=== PATIENT | female | born 2000 | race Caucasian/White ===

== ENCOUNTER 2024-01-30 19:12 | Outpatient (REF) | payer MEDICAID, SELFPAY ==
[2024-02-01 13:24] LABS: Hemoglobin S Screen Negative (Negative)
== END 2024-01-30 19:13 | disposition home or self-care (01) ==
LOC: LBN 19:12
PROVIDERS: Visit Provider Nurse Practitioner Family
DX: Z01.89 Encounter for other specified special examinations
CPT/HCPCS: 85660

== ENCOUNTER 2024-02-11 15:56 | Emergency (ER) | payer MEDICAID, SELFPAY ==
[2024-02-11 15:59] VITALS: BP 116/78; PULSE 83; RESP 18; TEMP 36.6; O2SAT 99
[2024-02-11 16:02] VITALS: BP 116/78; PULSE 83; RESP 18; TEMP 36.6; O2SAT 99
[2024-02-11 16:51] LABS: Abs Immature Grans 0.05 10^3/uL (0.0-0.06); Absolute Basophil Count 0.05 10^3/uL (0.0-0.2); Absolute Eosinophil Count 0.17 10^3/uL (0.0-0.7); Absolute Lymphocyte Count 2.29 10^3/uL (1.2-3.4); Absolute Monocyte Count 0.56 10^3/uL (0.1-0.8); Absolute Neutrophil Count 6.35 10^3/uL (1.2-6.7); Basophils % 0.5 %; Eosinophils % 1.8 %; HCT 44.2 % (36.0-46.0); HGB 14.5 g/dL (11.2-15.7); Immature Grans % 0.5 %; Lymphocytes % 24.2 %; MCH 31.2 pg (27.0-33.0); MCHC 32.8 % (32.0-36.0); MCV 95 fL (80-95); MPV 10.7 fL (8.0-11.0); Monocytes % 5.9 %; Neutrophils % 67.1 %; Platelet Count 227 10^3/uL (130-400); RBC 4.65 10^6/uL (3.93-5.22); RDW 12.3 % (11.7-14.6); RDW-SD 42.7 fL; WBC 9.47 10^3/uL (4.4-10.8)
[2024-02-11] MEDS: Lactated Ringers 1,000 ML 1000 ML IV (17:05)
[2024-02-11 17:21] LABS: Magnesium 1.9 mg/dL (1.8-2.4)
[2024-02-11 17:22] LABS: Creatine Kinase 3047 U/L (26-192)
--- NOTE | 2024-02-11 17:55 | DI.RAD_ITS ---
Exam(s) XR HIP PELVIS ADULT BL EXAM: XR HIP PELVIS ADULT BL CLINICAL HISTORY: bilateral hip pain after sprinting. TECHNIQUE: 2D digital imaging was performed of the pelvis and bilateral hips. Three images were obt ained. AP pelvis and lateral views of both hips were obtained. COMPARISON: No exams were available for comparison FINDINGS: BONES: No acute fracture is present. No bony destructive lesion is seen. JOINTS: No dislocation present. SOFT TISSUE: Normal. IMPRESSION: Unremarkable radiographs of bilat hips. Unremarkable radiographs of the pelvis DATA REPOSITORY: RADIATION DOSE DELIVERED:
--- NOTE | 2024-02-11 18:02 | ED.GENADUL_ITS ---
Discharge Plan Disposition Patient Disposition: Home Condition: Good Discharge Details Clinical Impression: Rhabdomyolysis Primary Care Provider: None,None ED Provider: Maulik Whitfield Home Meds and New Rx's Prescriptions: No Action No Known Home Meds Discharge Instructions Instructions: Rhabdomyolysis Additional Instructions: At this time you have evidence of mild rhabdomyolysis. It is important that you avoid any aggressive activity for the next week. Perform daily stretching exercises on your quads and legs 3-4 times daily. Drink a minimum of 10 to 12 cups of water and/or electrolyte solution per day to stay well-hydrated, making sure that you maintain extremely light yellow or clear urine. Please use heating pads to help with any muscle cramps. If you have persistent pain after a week of this conservative therapy you may require further evaluation on a nonemergent basis with orthopedics or physical therapy. If you notice any worsening of your symptoms, or any new symptoms such as vomiting, diarrhea, fever, chills, shortness of breath, chest pain, numbness, weakness, or fainting , please return immediately to the emergency department for reevaluation. Please follow up with your primary care provider as soon as possible for reassessment and reevaluation. As always, it was a pleasure participating in your medical care today. Referrals: Ashok Sánchez [ [facility] STAFF PHYSICIAN] - [facility] General Date/Time Provider Initiated Documentation: 02/11/24 15:57 . 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 Patient states that 3 days ago she was doing warm up exercises for basketball when she felt notable cramping spasm in her anterior thighs bilaterally. Her legs locked up, and she had cramp-like pain. She is eventually able to get up and walk around but had mild to moderate pain while doing this. This pain is continued over the next 72 hours, but is only m ildly improved. It is notably exacerbated whenever she activates her quad musculature. She does admit to some tingling and burning sensation around the hip. She denies any numbness or tingling distally. She denies any bowel or bladder incontinence. She denies any chest pain or shortness of breath. She denies hearing any pop sound during the initial event. She denies any recent antibiotic or fluoroquinolone use. No other complaints at this time. No other modifying factors. Related Data Home Medications ?Medication ?Instructions ?Recorded ?Confirmed Unknown [No Known Home Meds] 01/30/24 02/11/24 Allergies Allergy/AdvReac Type Severity Reaction Status Date / Time No Known Allergies Allergy Verified 02/11/24 16:01 General Stated Complaint: GenMedical RAAD: 3 Review of Systems All systems reviewed & are unremarkable except as noted in HPI and below Exam Narrative Exam Narrative: 1.Const: Well-nourished, Well-developed, appearing stated age 2.Eyes: PERRL, no conjunctival injection, and symmetrical lids. 3.ENT: Atraumatic external nose and ears. Moist MM. Neck: Symmetric, trachea midline, No thyromegaly. 4.CVS: +S1/S2, No murmurs or gallops. Peripheral pulses 2+ and equal in all extremities. Brisk capillary refill in all extremities. 5.RESP: Unlabored respiratory effort. Clear to auscultation bilaterally. No wheezes rales or rhonchi 6.GI: Soft, Nontender/Nondistended, No hepatosplenomegaly. No guarding or rebound. 7.MSK: Normocephalic/Atraumatic, Extremities w/o deformity or ttp on palpation of the anterior lateral medial and posterior aspects of the thigh. No cyanosis or clubbing, no pain with passive movement of the thighs. However with activat ion of the quadricep muscles she has notable pain with extension of the knee, and flexion at the hip. No pain in the calves, knee, or ankle. Good plantar and dorsiflexion of the feet bilaterally. Dorsalis pedis and posterior tibial pulses +2 bilaterally. No edema or swelling. No focal hip tenderness. Pelvis is stable. 8.Skin: Warm, Dry. No rashes or lesions. 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 Sensation grossly intact, no focal neurologic deficits. 10.Psych: (AAO) x3. Appropriate mood and affect Course Vital Signs Vital signs: Vital Signs Temperature 36.6 C 02/11/24 15:59 Pulse 83 02/11/24 15:59 Respiratory Rate 18 02/11/24 15:59 Blood Pressure 116/78 02/11/24 15:59 Pulse Oximetry 99 02/11/24 15:59 Temperature 36.6 C 02/11/24 16:02 Temperature Source Oral 02/11/24 16:02 Pulse 83 02/11/24 16:02 Respiratory Rate 18 02/11/24 16:02 Respiratory Effort Normal, Non-Labored 02/11/24 16:02 Blood Pressure 116/78 02/11/24 16:02 Blood Pressure Position Sitting 02/11/24 16:02 Pulse Oximetry 99 02/11/24 16:02 Oxygen Delivery Method Room Air 02/11/24 16:02 Oxygen Flow Rate 0 02/11/24 16:02 Lab/Test Results Lab/Test Results: Laboratory Tests Range/Units 02/11/24 16:45 WBC (4.4-10.8) 10^3/uL 9.47 RBC (3.93-5.22) 10^6/uL 4.65 Hgb (11.2-15.7) g/dL 14.5 Hct (36.0-46.0) % 44.2 MCV (80-95) fL 95 MCH (27.0-33.0) pg 31.2 MCHC (32.0-36.0) % 32.8 RDW (11.7-14.6) % 12.3 Plt Count (130-400) 10^3/uL 227 MPV (8.0-11.0) fL 10.7 Immature Gran % % 0.5 Neutrophils % % 67.1 Lymphocytes % % 24.2 Monocytes % % 5.9 Eosinophils % % 1.8 Basophils % % 0.5 Nucleated RBC % (0.0-0.3) % 0.0 Absolute Neutrophils (1.2-6.7) 10^3/uL 6.35 Absolute Lymphocytes (1.2-3.4) 10^3/uL 2.29 Absolute Monocytes (0.1-0.8) 10^3/uL 0.56 Absolute Eosinophils (0.0-0.7) 10^3/uL 0.17 Absolute Basophils (0.0-0.2) 10^3/uL 0.05 Magnesium (1.8-2.4) mg/dL 1.9 Creatine Kinase (26-192) U/L 3047 H POC- Test(urine) Negative Medical Decision Making 23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 Patient states that 3 days ago she was doing warm up exercises for basketball when she felt notable cramping spasm in her anterior thighs bilaterally. Her legs locked up, and she had cramp-like pain. She is eventually able to get up and walk around but had mild to moderate pain while doing this. This pain is continued over the next 72 hours, but is only mildly improved. It is notably exacerbated whenever she activates her quad musculature. She does admit to some tingling and burning sensation around the hip. She denies any numbness or tingling distally. She denies any bowel or bladder incontinence. She denies any chest pain or shortness of breath. She denies hearing any pop sound during the initial event. She denies any recent antibiotic or fluoroquinolone use. No other complaints at this time. No other modifying factors. Exam demonstrates Extremities w/o deformity or ttp on palpation of the anterior lateral medial and posterior aspects of the thigh. No cyanosis or clubbing, no pain with passive movement of the thighs. However with activation of the quadricep muscles she has notable pain with extension of the knee, and flexion at the hip. No pain in the calves, knee, or ankle. Good plantar and dorsiflexion of the feet bilaterally. Dorsalis pedis and posterior tibial pulses +2 bilaterally. No edema or swelling. No focal hip tenderness. Pelvis is stable. No swelling or edema to suggest DVT, no pallor, cyanosis, or violaceous coloring to suggest phlegmasia cerulea dolens or phlegmasia alba dolens. No weakness to suggest tendon rupture. No bony tenderness to suggest fracture. Symptoms inconsistent with neurovascular compromise. Concern is that the patient had a notable spasm which led to potential rhabdomyolysis. We will rehydrate with a liter of lactated Ringer's, check renal function, CK and urine. Will monitor closely and reassess. We will get an x-ray to rule out fracture versus chronic Scfe 8 PM Laboratory workup shows no white count, electrolytes are normal, anion gap is minimally elevated at 12. Patient does demonstrate evidence of rhabdomyolysis with a CPK of 3161. Patient has received a liter of lactated Ringer's. Will give an additional 2 L for continued resuscitation. Hemodynamics remained stable. X-ray negative for acute process. 9:30 PM Laboratory workup remains stable. CK notably downtrending by over 700. Patient feels well, urinating well, urine is clear. Discussed risk and benefits of admission versus discharge, patient prefers discharge at this time with continued oral hydration at home. She shows no signs of renal insufficiency, hillary kidney injury, or ligamentous rupture. Will recommend rest from sports for the next week, continued hydration, heating pads on her thighs, and regular stretching. If patient's symptoms persist, she may need further orthopedic evaluation on a nonemergent outpatient basis. Discussed red flags for which to return. I have extensively reviewed the treatment plan and discharge instructions with the patient. I have addressed all patient concerns at this time. The patient was made aware of what symptoms to monitor for that would warrant a return to the emergency department. Discussed the plan with the patient, they demonstrate verbal understanding and agreement with our assessment and plan at this time. The documentation in this chart was dictated using [employer] dictation software. Please excuse any dictation errors. FINDINGS: BONES: No acute fracture is present. No bony destructive lesion is seen. JOINTS: No dislocation present. SOFT TISSUE: Normal. IMPRESSION: Unremarkable radiographs of bilat hips. Unremarkable radiographs of the pelvis Quality:SDOH Health Related Social Needs: No Data to Display PFSH All Active Problems (Updated 02/11/24 @ 21:22 by Maulik Whitfield DO) Rhabdomyolysis (Acute) Social History Smoking/Tobacco Use Status: Never Smoking risk assessment performed?: Yes Alcohol Intake: never Drug use: Occasionally Substance use type: marijuana Do you feel safe at home: Yes Do you feel safe in your relationship?: Yes
[2024-02-11 18:05] LABS: Bilirubin Negative (Negative); Blood Negative (Negative); Clarity Clear (Clear); Glucose Negative (Negative); Ketones Negative (Negative); Leukocyte Esterase Negative (Negative); Nitrite Negative (Negative); Urobilinogen 0.2 mg/dL (Up to 0.2); pH 5.5 (5-8)
[2024-02-11] MEDS: Normal Saline 1,000 ML 1000 ML IV ×2 (18:09→20:02)
[2024-02-11 18:29] LABS: Anion Gap 12.2 mmol/L (3-11); BUN 13 mg/dL (7-18); CO2 21.8 mmol/L (21.0-32.0); CREATININE 0.9 mg/dL (0.55-1.02); Calcium 9.5 mg/dL (8.5-10.1); Chloride 100 mmol/L (98-107); Glucose 132 mg/dL (74-106); Sodium 134 mmol/L (136-145)
[2024-02-11 20:58] LABS: Creatine Kinase 3161 U/L (26-192)
[2024-02-11 21:41] LABS: Creatine Kinase 2442 U/L (26-192)
[2024-02-11 21:53] VITALS: RESP 16
[2024-02-11 21:56] VITALS: BP 114/72; PULSE 70; RESP 16; TEMP 36.6
== END 2024-02-11 21:56 | disposition home or self-care (01) ==
PROVIDERS: Emergency Provider Student in an Organized Health Care Education/Training Program
DX: M62.82 Rhabdomyolysis; M79.651 Pain in right thigh; M79.652 Pain in left thigh
CPT/HCPCS: 36415; 73521; 80048; 81025; 82550; 96360; 96361; 99284; 81003; 83735; 85025; 99283

== ENCOUNTER 2024-02-14 13:26 | Emergency (ER) | payer MEDICAID, SELFPAY ==
[2024-02-14] VITALS (14 sets, daily range): BP systolic 142; BP diastolic 86; PULSE 69–101; RESP 14–16; TEMP 36.6; O2SAT 96–99
--- NOTE | 2024-02-14 13:49 | ED.GENADUL_ITS ---
Discharge Plan Discharge Details Chief Complaint: GenMedical Clinical Impression: Rhabdomyolysis Primary Care Provider: Unknown,Unknown ED Provider: Maulik Cox Home Meds and New Rx's Prescriptions: No Action No Known Home Meds HPI General Date/Time Provider Initiated Documentation: 02/14/24 13:32 . HPI Narrative: 23 year-old female presents to ED today by POV/ambulating with a chief complaint of leg pain, pins & needles intermittently in her legs with onset today, was treated for rhabdomyolysis on Tuesday with IVF. Quality described as intermittent severe leg cramps/tingling, and persistent severe fatigue, no radiation to cough, shortness of breath, chest pain, upper body aches/cramps, dizziness, vertigo, syncope, nausea/vomiting. Severity is described as moderate. Palliating factors include has been trying to hydrate at home. Provoking factors include nothing specific. Events leading up to the incident/Associated Symptoms: Patient is active in sports. Patient not anticoagulated. Related Data Home Medications ?Medication ?Instructions ?Recorded ?Confirmed Unknown [No Known Home Meds] 01/30/24 02/14/24 Allergies Allergy/AdvReac Type Severity Reaction Status Date / Time No Known Allergies Allergy Verified 02/14/24 13:33 General Stated Complaint: GenMedical RAAD: 3 Review of Systems All systems reviewed & are unremarkable except as noted in HPI and below Exam Narrative Exam Narrative: GENERAL APPEARANCE: Well-nourished, non-toxic, awake and alert, atraumatic, no acute distress. SKIN: Warm, pink, dry, intact, without rashes/lesions/ulcerations. HEAD: Normocephalic, atraumatic, normal hair distribution for gender/age. EYES: Normal conjunctiva, no exudates on lids/lashes. ENT: Nares patent, no circumoral cyanosis, no facial swelling NECK: Supple, trachea midline, painless cervical ROM. LUNGS/CHEST: Lungs CTA bilaterally, non-labored respirations, normal A/P diameter, symmetrical expansion, no chest wall deformity HEART (CV/PV): Regular rate and rhythm without murmur, no peripheral edema, no JVD. ABDOMEN: Soft, non-distended, no guarding. MSK: Normal ROM, no swelling/deformity to bilateral UEs or LEs, moving all extremities without weakness, no cyanosis, spine midline without tenderness, normal curvature. NEURO: Mental Status AAOx4 - alert to person, place, time, events No facial droop, no forehead involvement. Motor: No focal weakness - strength 5/5 in bilateral UEs and LEs, proximal and distal, symmetric. Sensory: sensation intact to light touch globally. Gait normal: patient ambulated without ataxia into ED room. PSYCH: euthymic, cooperative, pleasant, appropriate speech Course Vital Signs Vital signs: Vital Signs Temperature 36.6 C 02/14/24 13:29 Pulse 101 H 02/14/24 13:29 Respiratory Rate 14 02/14/24 13:29 Blood Pressure 142/86 H 02/14/24 13:29 Pulse Oximetry 98 02/14/24 13:29 Temperature 36.6 C 02/14/24 13:29 Temperature Source Oral 02/14/24 13:29 Pulse 101 H 02/14/24 13:29 Respiratory Rate 14 02/14/24 13:29 Respiratory Effort Normal, Non-Labored 02/14/24 13:32 Blood Pressure 142/86 H 02/14/24 13:29 Blood Pressure Position Sitting 02/14/24 13:29 Pulse Oximetry 98 02/14/24 13:29 Oxygen Delivery Method Room Air 02/14/24 13:29 Oxygen Flow Rate 0 02/14/24 13:29 Pain Level 4 02/14/24 13:29 Medical Decision Making This dictation utilizes xerqt-vs-hirl dictation software and may contain unedited grammatical errors. 23 year-old female presents to ED today by POV/ambulating with a chief complaint of leg pain, pins & needles intermittently in her legs with onset today, was treated for rhabdomyolysis on Tuesday with IVF. Quality described as intermittent severe leg cramps/tingling, and persistent severe fatigue, no radiation to cough, shortness of breath, chest pain, upper body aches/cramps, dizziness, vertigo, syncope, nausea/vomiting. Severity is described as moderate. Palliating factors include has been trying to hydrate at home. Provoking factors include nothing specific. Events leading up to the incident/Associated Symptoms: Patient is active in sports. Patients' medical history: Rhabdomyolysis. Family and social history: Active in sports, exercises regularly, denies illicit drug use. Pertinent exam findings / vital signs include neurovascularly intact in bilateral lower extremities, benign cardiopulmonary exam, neuro intact. Differential / pathologies of concern include rhabdomyolysis, dehydration. Diagnostic studies of: -CBC, CMP, CK, UA -CBC shows no leukocytosis, no anemia -CMP shows glucose of 73, will give some p.o. intake -CK is 489, consistent with rhabdomyolysis -UA pending at sign-out Interventions of: -2L IVF NS. ED Course/Assessment/Plan: 23-year-old otherwise healthy female presents after being treated for rhabdomyolysis over the weekend, she is active in sports, she has continued elevation of creatine kinase today's exam and will be given aggressive fluid resuscitation with likely recheck and possible discharge home. She has no concerns for infection or other emergent pathology, normal renal function without severe acute increase in BUN. Patient signed out to oncoming provider Gissell Robison PA-C with 2nd liter IVF running, re-check of CK pending. Findings not consistent with acute renal failure. Disposition of rhabdomyolysis. Patient verbalized understanding of the plan and return to ED criteria and engaged in shared decision making. Medical Records Medical records reviewed: Yes I reviewed the patient's medical records. Lab Data Lab results reviewed: Yes I reviewed the patient's lab results. Labs: Laboratory Tests Range/Units 02/14/24 14:17 WBC (4.4-10.8) 10^3/uL 7.76 RBC (3.93-5.22) 10^6/uL 4.17 Hgb (11.2-15.7) g/dL 13.1 Hct (36.0-46.0) % 40.0 MCV (80-95) fL 96 H MCH (27.0-33.0) pg 31.4 MCHC (32.0-36.0) % 32.8 RDW (11.7-14.6) % 12.3 Plt Count (130-400) 10^3/uL 202 MPV (8.0-11.0) fL 10.3 Immature Gran % % 0.5 Neutrophils % % 62.4 Lymphocytes % % 26.5 Monocytes % % 6.6 Eosinophils % % 3.5 Basophils % % 0.5 Nucleated RBC % (0.0-0.3) % 0.0 Absolute Neutrophils (1.2-6.7) 10^3/uL 4.84 Absolute Lymphocytes (1.2-3.4) 10^3/uL 2.06 Absolute Monocytes (0.1-0.8) 10^3/uL 0.51 Absolute Eosinophils (0.0-0.7) 10^3/uL 0.27 Absolute Basophils (0.0-0.2) 10^3/uL 0.04 Sodium (136-145) mmol/L 137 Potassium (3.5-5.1) mmol/L 3.6 Chloride (98-107) mmol/L 102 Carbon Dioxide (21.0-32.0) mmol/L 27.7 Anion Gap (3-11) mmol/L 7.3 BUN (7-18) mg/dL 9 Creatinine (0.55-1.02) mg/dL 0.8 Est GFR (CKD-EPI 2020) (mL/min/1.73m2) 106.77 Glucose (74-106) mg/dL 73 L Calcium (8.5-10.1) mg/dL 9.0 Total Bilirubin (0.2-1.0) mg/dL 0.28 AST (15-37) U/L 42 H ALT (14-59) U/L 32 Alkaline Phosphatase (46-116) U/L 86 Creatine Kinase (26-192) U/L 489 H Total Protein (6.4-8.2) g/dL 7.3 Albumin (3.4-5.0) g/dL 3.7 Quality:SDOH Health Related Social Needs: No Data to Display PFSH All Active Problems (Updated 02/14/24 @ 15:08 by KARTHIK Moreno) Rhabdomyolysis (Acute) Social History Smoking/Tobacco Use Status: Never Smoking risk assessment performed?: Yes Alcohol Intake: never Drug use: Occasionally Substance use type: marijuana Housing: condominium Do you feel safe at home: Yes Do you feel safe in your relationship?: Yes Sign Out Sign Out Data: Sign Out Comment: 23 y/o otherwise healthy female with rhabdo, active in sports. Seen over the weekend for same and given IVF. CK is 489, normal renal function. Getting 2L IVF, re-check CK for hopeful d/c home. Last updated by Maulik Cox PA at 02/14/24 15:09
[2024-02-14] MEDS: Normal Saline 1,000 ML 1000 ML IV ×2 (14:21→16:00)
[2024-02-14 14:25] LABS: Abs Immature Grans 0.04 10^3/uL (0.0-0.06); Absolute Basophil Count 0.04 10^3/uL (0.0-0.2); Absolute Eosinophil Count 0.27 10^3/uL (0.0-0.7); Absolute Lymphocyte Count 2.06 10^3/uL (1.2-3.4); Absolute Monocyte Count 0.51 10^3/uL (0.1-0.8); Absolute Neutrophil Count 4.84 10^3/uL (1.2-6.7); Basophils % 0.5 %; Eosinophils % 3.5 %; HGB 13.1 g/dL (11.2-15.7); Immature Grans % 0.5 %; Lymphocytes % 26.5 %; MCH 31.4 pg (27.0-33.0); MCHC 32.8 % (32.0-36.0); MCV 96 fL (80-95); MPV 10.3 fL (8.0-11.0); Monocytes % 6.6 %; Neutrophils % 62.4 %; Platelet Count 202 10^3/uL (130-400); RBC 4.17 10^6/uL (3.93-5.22); RDW 12.3 % (11.7-14.6); RDW-SD 43.5 fL; WBC 7.76 10^3/uL (4.4-10.8)
[2024-02-14 14:46] LABS: ALT 32 U/L (14-59); AST 42 U/L (15-37); Albumin 3.7 g/dL (3.4-5.0); Alkaline Phosphatase 86 U/L (46-116); Anion Gap 7.3 mmol/L (3-11); BUN 9 mg/dL (7-18); Bilirubin, Total 0.28 mg/dL (0.2-1.0); CO2 27.7 mmol/L (21.0-32.0); CREATININE 0.8 mg/dL (0.55-1.02); Chloride 102 mmol/L (98-107); Creatine Kinase 489 U/L (26-192); Estimated GFR 106.77 (mL/min/1.73m2); Glucose 73 mg/dL (74-106); Potassium 3.6 mmol/L (3.5-5.1); Sodium 137 mmol/L (136-145); Total Protein 7.3 g/dL (6.4-8.2)
[2024-02-14 16:11] LABS: Bilirubin Negative (Negative); Blood Negative (Negative); Clarity Clear (Clear); Glucose Negative (Negative); Ketones Negative (Negative); Leukocyte Esterase Negative (Negative); Nitrite Negative (Negative); Specific Gravity 1.015 (1.005-1.025); Urobilinogen 0.2 mg/dL (Up to 0.2); pH 7.5 (5-8)
[2024-02-14] MEDS: Ketorolac 15 MG/ML VIAL 7.5 MG IVP (17:53)
[2024-02-14 18:09] LABS: Creatine Kinase 377 U/L (26-192)
== END 2024-02-14 19:10 | disposition home or self-care (01) ==
PROVIDERS: Physician Assistant; Emergency Provider Physician Assistant
DX: M62.82 Rhabdomyolysis (principal); R53.83 Other fatigue
CPT/HCPCS: 36415; 80053; 82550; 96361; 96374; 99284; 81003; 85025; 99283; J1885